=== PATIENT | male | born 1960 | race Caucasian/White ===

== ENCOUNTER 2023-03-12 18:30 | Emergency (ER) | payer OTHER ==
[~2023-03-12] VITALS: Ht 170.2 cm; Wt 89.4 kg
[2023-03-12] MEDS ORDERED: TETRACAINE HCL 0.5% OPTH SOLN 4 ML BTL OP ONE (18:45)
[2023-03-12] MEDS ORDERED: FLUORESCEIN SOD(OPTH) 1 MG STRP OP ONE (18:45)
[2023-03-12] MEDS ORDERED: CILOXAN5 ML OS (19:20)
[2023-03-12 19:29] VITALS: BP 155/90
== END 2023-03-12 19:29 | disposition home or self-care (01) ==
LOC: FSED 18:42
DX: T15.92XA Foreign body on external eye, part unspecified, left eye, initial encounter (principal); H16.002 Unspecified corneal ulcer, left eye; I10 Essential (primary) hypertension; E78.5 Hyperlipidemia, unspecified
CPT/HCPCS: 99282